=== PATIENT | female | born 1965 ===

== ENCOUNTER → 2016-09-08 | Outpatient (CLI) | payer OTHER ==
--- NOTE | 2016-09-08 17:09 | CT ---
CT of the maxillofacial (Without Contrast) Clinical Indications: CSF rhinorrhea. Technique: Contiguous helical axial scanning through the sinus with reconstructions in coronal and s agittal planes. Findings: The sinuses are well developed and free of fluid. No mucosal thickening and no masses are found. Ostiomeatal units are patent. The nasal septum is midline. The nasal turbinates are unremar kable. There is a small mucocele or polyp in the superior left maxillary sinus measuring 6 mm. There is no evidence of fluid in the sphenoid sinuses or ethmoid sinuses. There is a low lying mildly thin cribriform plate, but no convincing evidence of fracture. Impression: 1. No evidence of skull fracture or source for CSF rhinorrhea. 2. Small maxillary polyp. I reviewed these films with Dr. Marcin Welsh, who also agrees with the above.
== END ==
LOC: CIMAGING 13:58
PROVIDERS: ATTEND Physician Assistant
DX: G96.0 Cerebrospinal fluid leak (principal)
CPT/HCPCS: 70486-PO